=== PATIENT | female | born 1950 | race Caucasian/White ===

== ENCOUNTER 2019-10-03 13:00 | Emergency (ER) | payer MEDICARE ==
[~2019-10-03] VITALS: Ht 160 cm; Wt 76.4 kg
[2019-10-03] MEDS ORDERED: ESTR62CR (15:15)
[2019-10-03] MEDS ORDERED: ALEN70TA74 (15:15)
[2019-10-03] MEDS ORDERED: LEVO25TA5 (15:15)
[2019-10-03] MEDS ORDERED: LISI-538 (15:15)
[2019-10-03] MEDS ORDERED: PEPC1TAB5 PO (16:09)
[2019-10-03] MEDS ORDERED: PRED20TA PO (16:09)
[2019-10-03] MEDS ORDERED: MOXI1TAB PO (16:09)
[2019-10-03] MEDS ORDERED: PYRI1TAB5 PO (16:09)
[2019-10-03 16:24] VITALS: BP 140/91
== END 2019-10-03 16:26 | disposition home or self-care (01) ==
LOC: M ED 13:00
DX: N39.0 Urinary tract infection, site not specified (principal); L50.9 Urticaria, unspecified; J45.909 Unspecified asthma, uncomplicated; E03.9 Hypothyroidism, unspecified; Z88.2 Allergy status to sulfonamides

== ENCOUNTER → 2019-10-19 | Outpatient (REF) | payer MEDICARE ==
[~2019-10-19] MED LIST: ALEN70TA74; ESTR62CR; LEVO25TA5; LISI-538; MOXI1TAB PO; PEPC1TAB5 PO; PRED20TA PO; PYRI1TAB5 PO
[2019-10-19 17:35] LABS: APPEARANCE, URINE CLOUDY (CLEAR); BACTERIA, URINE AUTO NEGATIVE (NEGATIVE); BILIRUBIN, URINE AUTO NEGATIVE (NEGATIVE); BLOOD, URINE BLOOD 1+ (NEGATIVE); COLOR, URINE YELLOW (YELLOW); GLUCOSE, URINE (UA) AUTO NEGATIVE (NEGATIVE); KETONE, URINE AUTO NEGATIVE (NEGATIVE); LEUKOCYTE ESTERASE, URINE AUTO 3+ (NEGATIVE); MUCUS, URINE SMALL (NEGATIVE); NITRITE, URINE AUTO POSITIVE (NEGATIVE); PROTEIN, URINE AUTO NEGATIVE (NEGATIVE); RBC, URINE AUTO 81 /HPF (0-3); SPECIFIC GRAVITY URINE AUTO 1.009 (1.002-1.035); SQUAMOUS EPITHELIAL CELL UR AU 0 /HPF (0-6); UROBILINOGEN, URINE AUTO 0.2 mg/dL (0.0-2.0); WBC, URINE AUTO TNTC /HPF (0-3)
== END ==
LOC: M SMT 17:11
PROVIDERS: ATTEND Nurse Practitioner Women's Health
DX: R30.0 Dysuria (principal)

== ENCOUNTER → 2019-10-31 | Outpatient (REF) | payer MEDICARE ==
[2019-10-31 13:25] LABS: APPEARANCE, URINE CLOUDY (CLEAR); BACTERIA, URINE AUTO NEGATIVE (NEGATIVE); BILIRUBIN, URINE AUTO NEGATIVE (NEGATIVE); BLOOD, URINE BLOOD 1+ (NEGATIVE); COLOR, URINE AMBER (YELLOW); GLUCOSE, URINE (UA) AUTO NEGATIVE (NEGATIVE); KETONE, URINE AUTO NEGATIVE (NEGATIVE); LEUKOCYTE ESTERASE, URINE AUTO 3+ (NEGATIVE); MUCUS, URINE SMALL (NEGATIVE); NITRITE, URINE AUTO POSITIVE (NEGATIVE); PROTEIN, URINE AUTO NEGATIVE (NEGATIVE); RBC, URINE AUTO 25 /HPF (0-3); SPECIFIC GRAVITY URINE AUTO 1.015 (1.002-1.035); SQUAMOUS EPITHELIAL CELL UR AU 0 /HPF (0-6); UROBILINOGEN, URINE AUTO 0.2 mg/dL (0.0-2.0); WBC, URINE AUTO TNTC /HPF (0-3)
== END ==
LOC: M SMT 13:00
PROVIDERS: ATTEND Nurse Practitioner Women's Health
DX: R30.0 Dysuria (principal)